=== PATIENT | female | born 1980 | race Caucasian/White ===

== ENCOUNTER 2020-12-04 18:46 | Emergency (ER) | payer MEDICAID ==
[~2020-12-04] VITALS: Ht 162.6 cm; Wt 59.1 kg
[2020-12-04] MEDS ORDERED: acetaminophen 325mg tablet PO ONE (19:25)
[2020-12-04] MEDS ORDERED: dexamethasone sod phosphate 10mg/ml inj PO STA (19:36)
[2020-12-04] MEDS ORDERED: proCHLORperazine 10 MG/2 ml inj IV ONE (19:40)
[2020-12-04] MEDS ORDERED: normal saline 1000ML IV soln IV ONE (19:40)
[2020-12-04 20:17] LABS: BASOPHILS % (AUTO) 0.2 % (0-1); EOSINOPHILS % (AUTO) 0 % (0-6); HEMATOCRIT 35.3 % (35.0-45.0); HEMOGLOBIN 11.6 g/dl (12.0-16.0); LYMPHOCYTES # (AUTO) 0.9 X10'3 (1.1-4.8); LYMPHOCYTES % (AUTO) 5.5 % (21-51); MEAN CORPUSCULAR HEMOGLOBIN 29.8 PG (27.0-31.0); MEAN CORPUSCULAR HGB CONC 32.9 g/dL (33.0-36.5); MEAN CORPUSCULAR VOLUME 90.4 FL (78-98); MEAN PLATELET VOLUME 8.3 FL (7.4-10.4); MONOCYTES # (AUTO) 1.5 X10'3 (0-0.9); MONOCYTES % (AUTO) 9.3 % (2-12); NEUTROPHILS # (AUTO) 13.6 X10'3 (1.8-7.7); PLATELET COUNT 299 X10'3 (140-440); RED CELL DISTRIBUTION WIDTH 15.3 % (11.5-14.5)
[2020-12-04 20:29] LABS: ALANINE AMINOTRANSFERASE 18 U/L (12-78); ALBUMIN 3.2 G/DL (3.4-5.0); ALBUMIN/GLOBULIN RATIO 0.7 (1.1-1.5); ALKALINE PHOSPHATASE 99 IU/L (46-116); ANION GAP 10 (8-16); ASPARTATE AMINO TRANSFERASE 24 U/L (10-37); BILIRUBIN,TOTAL 0.6 MG/DL (0.1-1.0); BLOOD UREA NITROGEN 9 MG/DL (7-18); BUN/CREATININE RATIO 11.1 (6.6-38.0); CALCIUM 8.2 MG/DL (8.5-10.1); CHLORIDE 101 MMOL/L (99-107); CREATININE 0.81 MG/DL (0.40-0.90); GLUCOSE 77 MG/DL (70-104); POTASSIUM 3.5 MMOL/L (3.5-5.1); SODIUM 135 MMOL/L (135-145); TOTAL CARBON DIOXIDE 24.1 MMOL/L (24-32); TOTAL PROTEIN 7.5 G/DL (6.4-8.2); eGFR 79 ML/MIN
[2020-12-04 21:22] LABS: CLARITY,URINE SLIGHTLY CLOUDY (Clear); COLOR,URINE YELLOW (Yellow); GLUCOSE, URINE NEGATIVE (Neg); KETONES,URINE NEGATIVE (Neg); LEUKOCYTE ESTERASE ,URINE TRACE (Neg); NITRITES, URINE POSITIVE (Neg); OCCULT BLOOD,URINE NEGATIVE (Neg); PROTEIN,URINE NEGATIVE (Neg); UROBILINOGEN,URINE 0.2 E.U/dL (0.2-1.0)
[2020-12-04 21:25] LABS: URINE AMPHETAMINE SCREEN POSITIVE (Neg); URINE BARBITUATE SCREEN NEGATIVE (Neg); URINE BENZODIAZEPINES SCREEN NEGATIVE (Neg); URINE CANNABINOID SCREEN NEGATIVE (Neg); URINE COCAINE SCREEN NEGATIVE (Neg); URINE METHADONE SCREEN NEGATIVE (Neg); URINE OPIATE SCREEN POSITIVE (Neg); URINE PHENCYCLIDINE SCREEN NEGATIVE (Neg)
[2020-12-04] MEDS ORDERED: AZIT250T PO (21:30)
[2020-12-04] MEDS ORDERED: BENZ-38 PO (21:30)
[2020-12-04] MEDS ORDERED: ALBU6.7H9 INH (21:30)
[2020-12-04 21:34] LABS: UA COLLECTION TYPE CLN CATCH MIDSTREAM
[2020-12-04 21:37] LABS: BACTERIA,URINE 2+ /HPF (Neg); MUCUS STRANDS MODERATE /LPF (Neg); RBC,URINE NONE SEEN /HPF (0-2); SQUAMOUS EPITHELIAL CELL,UR MANY /LPF (FEW); WBC,URINE 0-4 /HPF (0-4)
[2020-12-04 21:38] LABS: TRICHOMONAS,URINE FEW /HPF (NEGATIVE)
[2020-12-04 21:55] VITALS: BP 93/57
== END 2020-12-04 21:54 | disposition home or self-care (01) ==
LOC: ER 18:47
DX: J20.9 Acute bronchitis, unspecified (principal); Z20.822 Contact with and (suspected) exposure to COVID-19; R06.02 Shortness of breath; R53.1 Weakness; R50.9 Fever, unspecified; R11.2 Nausea with vomiting, unspecified; R05 Cough; F15.10 Other stimulant abuse, uncomplicated; Z98.890 Other specified postprocedural states; Z72.89 Other problems related to lifestyle; Z88.5 Allergy status to narcotic agent; Z79.2 Long term (current) use of antibiotics; Z79.899 Other long term (current) drug therapy
CPT/HCPCS: 36415; 71045; 80053; 80305; 81001; 83605; 84145; 85025; 87040; 87635; 93005; 96361; 96374; 99285; C9803; J0780; J1100; J7030

== ENCOUNTER 2021-06-14 00:39 | Emergency (ER) | payer MEDICAID ==
[~2021-06-14] VITALS: Ht 162.6 cm; Wt 61.8 kg
[~2021-06-14 00:39] MED LIST: ALBU6.7H9 INH
[2021-06-14] MEDS ORDERED: HYDROcodone/acetaminophen 10/325mg tab PO ONE (01:10)
[2021-06-14] MEDS ORDERED: amox tr/potassium clavulanate 875/125mg TAB PO ONE (01:50)
[2021-06-14] MEDS ORDERED: iohexol 350MG/ML 100ml bottle IV ONE (02:01)
[2021-06-14] MEDS ORDERED: piperacillin/tazo 4.5gm/100ml 100 ML IV ONE (03:25)
[2021-06-14] MEDS ORDERED: LIDOcaine 1% W/epiNEPHrine 1:200,000 10ml vial IJ ONE (03:30)
[2021-06-14] MEDS ORDERED: TETanus/Pertussis (Acell)/Diphther VAC/PF (Tdap-Adult) 0.5ml syringe IMVAC ONE (03:30)
[2021-06-14] MEDS ORDERED: LIDOcaine 1% w/epiNEPHrine 1:200,000 30ml vial IJ ONE (03:35)
[2021-06-14] MEDS ORDERED: ketorolac tromethamine 15mg/ml inj. IV ONE (05:35)
[2021-06-14] MEDS ORDERED: ketorolac trometh. 30mg/ml inj. IV ONE (05:45)
[2021-06-14] MEDS ORDERED: AMOX-117 PO (06:37)
[2021-06-14] MEDS ORDERED: HYDR-3965 PO (06:37)
[2021-06-14 06:59] VITALS: BP 135/74
== END 2021-06-14 07:02 | disposition home or self-care (01) ==
LOC: ER 00:39
DX: S01.81XA Laceration without foreign body of other part of head, initial encounter (principal); S61.412A Laceration without foreign body of left hand, initial encounter; S01.01XA Laceration without foreign body of scalp, initial encounter; W54.0XXA Bitten by dog, initial encounter; Y93.89 Activity, other specified; Y92.89 Other specified places as the place of occurrence of the external cause; Y99.8 Other external cause status
CPT/HCPCS: 12011; 70498; 73130; 90471; 90715; 96365; 96366; 96375; 99285; J1885; J2543; Q9967; 12001

== ENCOUNTER 2021-06-15 22:14 | Emergency (ER) | payer MEDICAID ==
[~2021-06-15] VITALS: Ht 162.6 cm; Wt 59.0 kg
[~2021-06-15 22:14] MED LIST changes: +AMOX-117 PO; +HYDR-3965 PO
[2021-06-15 22:22] VITALS: BP 100/50
== END 2021-06-15 23:03 | disposition home or self-care (01) ==
LOC: ER 22:14
DX: S61.452D Open bite of left hand, subsequent encounter (principal); F15.10 Other stimulant abuse, uncomplicated; Z88.5 Allergy status to narcotic agent; Z79.899 Other long term (current) drug therapy; W54.0XXD Bitten by dog, subsequent encounter
CPT/HCPCS: 99281

== ENCOUNTER 2024-07-17 10:06 | Emergency (ER) | payer MEDICAID ==
[~2024-07-17] VITALS: Ht 162.6 cm; Wt 65.8 kg
[~2024-07-17 10:06] MED LIST changes: +ALBU6.7H14 INH; -ALBU6.7H9 INH; -AMOX-117 PO; -HYDR-3965 PO
[2024-07-17 10:16] VITALS: TEMP 98.6
[2024-07-17] MEDS: cephalexin 250mg capsule PO ONE (12:46)
[2024-07-17] MEDS: dexamethasone sod phosphate 10mg/ml inj PO STA (12:47)
[2024-07-17] MEDS: sulfamethoxazole/trimethoprim DS (800/160mg) tablet PO ONE (12:47)
[2024-07-17] MEDS: ketorolac trometh 15mg/ml vial 15 MG/ML ML IM ONE (12:48)
[2024-07-17 13:22] VITALS: BP 99/65; PULSE 85; RESP 16; O2SAT 98
[2024-07-17] MEDS ORDERED: CEPH-585 PO (13:27)
[2024-07-17] MEDS ORDERED: SULF1TAB45 PO (13:27)
== END 2024-07-17 13:45 | disposition home or self-care (01) ==
LOC: ER 10:07
DX: L03.211 Cellulitis of face (principal); F15.90 Other stimulant use, unspecified, uncomplicated; Z88.5 Allergy status to narcotic agent
CPT/HCPCS: 96372; 99284; J1100; J1885